=== PATIENT | female | born 1990 | race Two or more races ===

== ENCOUNTER 2024-02-16 17:52 | Emergency (ER) | payer MEDICAID, SELFPAY ==
[2024-02-16 17:53] VITALS: BMI 33.7
[2024-02-16 18:11] VITALS: BP 113/76; PULSE 86; RESP 20; TEMP 37; O2SAT 97
--- NOTE | 2024-02-16 18:46 | XR_ITS ---
Examination: PA chest single view Technique: Upright PA chest single view Exam date and time: February 16, 2024 1859 hrs. Comparison June 27, 2023 Indications: Chest pain shortness of breath beginning 4 days ago. Findings: Normal heart size Lungs are clear. The osseous structures are intact Impression: No active disease
--- NOTE | 2024-02-16 18:46 | PD.EDRME ---
Rapid Medical Screening Exam RME Arrival date/time: 02/16/24 17:52 33F with no significant PMH presents to ED with several days of CP and SOB. Patient denies URI symptoms. Chief Complaint: Flu Like Symptoms Vital signs: Vital Signs Temperature 98.6 F 02/16/24 18:11 Pulse Rate 86 02/16/24 18:11 Respiratory Rate 20 02/16/24 18:11 Blood Pressure 113/76 02/16/24 18:11 Pulse Oximetry (%) 97 02/16/24 18:11 Oxygen Delivery Method Room Air 02/16/24 18:11
[2024-02-16 19:38] LABS: Basophils # (Auto) 0.1 Thou/mm3 (0.0-0.2); Basophils % (Auto) 1 % (0-2.5); Eosinophils # (Auto) 0.3 Thou/mm3 (0.0-0.5); Eosinophils % (Auto) 4 % (0-10); Hematocrit 36.3 % (36.0-46.0); Hemoglobin 12.5 g/dL (12.0-16.0); Immature Granulocytes % (Auto) 0 % (0-0); Immature Granulocytes Auto 0.02 Thou/mm3 (0.00-0.00); Lymphocytes # (Auto) 3.2 Thou/mm3 (1.0-4.8); Lymphocytes % (Auto) 33 % (10-50); Mean Corpuscular HGB Conc 34.4 g/dl (31.0-37.0); Mean Corpuscular Hemoglobin 29.8 pg (25.0-35.0); Mean Corpuscular Volume 87 fL (80-100); Monocytes # (Auto) 0.5 Thou/mm3 (0.0-0.8); Monocytes % (Auto) 6 % (0-12); Neutrophils # (Auto) 5.4 Thou/mm3 (1.8-7.7); Neutrophils % (Auto) 57 % (37-80); Nucleated Red Blood Cell % 0 /100 WBC (0); Platelet Count 287 Thou/mm3 (140-440); Red Blood Count 4.19 Miln/mm3 (4.00-5.20); White Blood Count 9.5 Thou/mm3 (3.6-11.0)
[2024-02-16 19:57] LABS: Alanine Aminotransferase 25 U/L (10-49); Albumin, Serum 4.3 gm/dL (3.5-5.0); Albumin/Globulin Ratio 1.5 (1.2-2.2); Alkaline Phosphatase 56 U/L (46-116); Anion Gap 6 (7-16); Aspartate Amino Transferase 14 U/L (0-34); BUN/Creatinine Ratio 21 Ratio (12-20); Bilirubin,Total 0.3 mg/dL (0.3-1.2); Blood Urea Nitrogen 15 mg/dL (9-23); Calcium 9.4 mg/dL (8.3-10.6); Calcium (Corrected) 9.4 mg/dL (8.5-10.1); Carbon Dioxide 25.7 mMol/L (20.0-31.0); Chloride 108 mMol/L (98-107); Creatinine (Component) 0.7 mg/dL (0.6-1.3); Estimated Creatinine Clearance 121.4 mL/min (>60); Globulin 2.9 gm/dL (2.3-3.5); Glucose 89 mg/dL (74-106); Osmolality,Calculated 279 (275-295); Potassium 4.2 mMol/L (3.4-5.1); Sodium 140 mMol/L (136-145); Total Protein 7.2 gm/dL (5.7-8.2); Troponin I < 0.002 ng/mL (0.0-0.045); eGFR > 60 See Note
--- NOTE | 2024-02-16 22:20 | PD.EDRME ---
Rapid Medical Screening Exam RME Arrival date/time: 02/16/24 17:52 02/16/24 17:52 33F with no significant PMH presents to ED with several days of CP and SOB. Patient denies URI symptoms. Chief Complaint: Flu Like Symptoms Vital signs: Vital Signs Temperature 98.6 F 02/16/24 18:11 Pulse Rate 86 02/16/24 18:11 Respiratory Rate 20 02/16/24 18:11 Blood Pressure 113/76 02/16/24 18:11 Pulse Oximetry (%) 97 02/16/24 18:11 Oxygen Delivery Method Room Air 02/16/24 18:11 RME Narrative: 02/16/24 17:52 33F with no significant PMH presents to ED with several days of CP and SOB. Patient denies URI symptoms.
--- NOTE | 2024-02-16 23:07 | PD.EDURI ---
Upper Respiratory Inf. RME/HPI General Chief Complaint: Flu Like Symptoms Stated Complaint: CHEST PAIN , [place] AND SOB X4 DAYS Source: patient Arrival date/time: 02/16/24 17:52 Mode of arrival: ambulatory Limitations: no limitations RME / HPI RME / HPI Narrative: 02/16/24 17:52 33F with no significant PMH presents to ED with several days of CP and SOB. Patient denies URI symptoms. --- DR. THOMAS MAIN ED EVALUATION: 33-year-old female with no significant past medical history coming in with 4 -day history of cough, associated shortness of breath only with a cough. Patient has chest wall pain with coughing. Patient has been taking Tylenol x4 days without improvement. No family history of pulmonary embolism. Non-smoker and no recent travel. No swelling of lower extremities. Related Data Previous Rx's ?Medication ?Instructions ?Recorded ibuprofen 600 mg tablet 600 mg PO Q6H PRN pain #20 tabs 01/28/21 Allergies Allergy/AdvReac Type Severity Reaction Status Date / Time ceftriaxone Allergy Severe Hives Verified 02/16/24 17:55 Review of Systems Review of Systems Systems Reviewed: All systems reviewed, normal except as documented Narrative Review of Systems: GEN: No fever, no chills, no weight loss EYES: No discharge, no visual changes, no pain HEENT: No ear pain, no congestion, no sore throat PULM: No shortness of breath, +cough, no congestion CV: +chest pain, no dyspnea on exertion, no palpitations GI: No nausea, no vomiting, no diarrhea, no pain, no constipation : No frequency, no urgency and no dysuria MUSC/SKEL No joint pain, no back pain SKIN: No rash PSYCH: No hallucinations, no depression HEME/LYMPH: No easy bleeding or bruising tendencies NEURO: No weakness, neck spasm mild headache Past Medical History Past Medical History NEUROLOGIC: Negative Neurological Disorders CARDIAC: Negative Cardiac Disorders or Congestive Heart Failure RESPIRATORY: Positive Asthma; Negative Chronic Obstructive Pulmonary Disease (COPD) or Pneumonia GASTROINTESTINAL: Positive Gastrointestinal Disorders and Gall Bladder Disease; Negative Hepatitis GENITOURINARY: Negative Genitourinary Disorders or Renal Disease REPRODUCTIVE: Positive Previous Pregnancies; Negative Endometriosis, Genital Herpes, Gonorrhea, Pelvic Inflammatory Disease, Syphilis or Uterine Prolapse MUSCULOSKELETAL: Negative Musculoskeletal Disorders ENDOCRINE: Negative Endocrine Disorders, Diabetes Mellitus Type 1 or Diabetes Mellitus Type 2 HEMATOLOGIC: Negative Blood Disorders, Anemia, Leukemia, Hemophilia, Thalassemia, Sickle Cell Disease or Clotting Problems OTHER HISTORY: Positive Hospitalization and Chicken Pox; Negative Autoimmune Disease, Down Syndrome, Developmental Delay, Shingles, Falls, Blood Transfusions, Blood Transfusion Reaction, Anesthesia Reactions, Organ Transplant, Chemotherapy, Radiation Therapy, Hyperbaric Therapy, MRSA, VRSA, Vancomycin-Resistant Enterococci, Human Immunodeficiency Virus (HIV), Measles, Mumps, Rubella ([place] Measles), Pertussis, Clostridium Difficile or Cancer Family History FAMILY HISTORY: Positive Family Psychiatric Problems (MOTHER- DEPRESSION) and Family Cardiac Disorders (MOTHER- CHOLESTEROL/HTN.); Negative Family Respiratory Disorders, Family Gastrointestinal Problems, Family Cancer, Family Surgery or Family Anesthesia Reaction Surgical History SURGICAL: Positive Abdominal Surgery; Negative Section or Organ Transplant Social History SMOKING STATUS: Never smoker SECOND HAND EXPOSURE: No ED Exam Narrative Physical exam: GENERAL: In general the patient is awake, interactive, in an emergency department gurney. Diaphoretic. HEAD/EYES/EARS/NOSE/THROAT: normo-cephalic, atraumatic, mucus membranes are moist. No cervical tenderness palpation midline. Supple neck. CARDIOVASCULAR: regular rate and regular rhythm, no murmurs, heart sounds are not distant, strong pulses in all four extremities that are equal and symmetric bilateral upper and lower extremities, normal capillary refill. CHEST/PULMONARY: normal chest rise and fall, good air movement, clear to auscultation bilaterally, normal inspiratory to expiratory ratios without evidence of respiratory distress. ABDOMEN: soft, not tender, no masses appreciated BACK: normal range of motion without pain. NEUROLOGICAL: cranio-facial features are symmetric, moves all four extremities equally without obvious limitations or weakness. EXTREMITY: no tenderness to palpation over the long bones or large joints of the bilateral upper and lower extremities, no joint swelling, no joint erythema, no signs of trauma, no unilateral leg swelling and no peripheral edema. SKIN: warm, dry, well-perfused, no jaundice, no rash, no telangiectasias or petechia. PSYCH: calm, cooperative, no evidence of psychosis or agitation General Limitations: Present no limitations Course Course Course Narrative: CXR is ordered for determining etiology of shortness of breath. Quality Measures none Orders Category Date Time Status Bedside Influenza A&B Antigen Test NOW Care 02/16/24 18:21 Completed EKG (ED ONLY) *Do not use* NOW Care 02/16/24 17:56 Completed EKG (ED Only) Stat Exams 02/16/24 17:56 Ordered XR chest 1V portable Stat Exams 02/16/24 18:46 Completed CBC Stat Lab 02/16/24 19:23 Completed Comprehensive Metabolic Panel Stat Lab 02/16/24 19:23 Completed Troponin I Stat Lab 02/16/24 19:23 Completed Diazepam [Valium] Med 02/16/24 23:14 Discontinued 5 mg PO X1 ONE Ketorolac Inj [Toradol Inj] Med 02/16/24 23:12 Discontinued 30 mg IM X1 ONE Vital Signs Vital signs: Vital Signs Temperature 98.6 F 02/16/24 18:11 Pulse Rate 86 02/16/24 18:11 Respiratory Rate 20 02/16/24 18:11 Blood Pressure 113/76 02/16/24 18:11 Pulse Oximetry (%) 97 02/16/24 18:11 Oxygen Delivery Method Room Air 02/16/24 18:11 Procedures -ED EKG Interpretation #1: Date of EK02/16/24 Time of EK:08 Rate: 73 Interpretation: Interpreted by me EKG Impression: Normal sinus rhythm and No acute ST-T changes Additional EKG comment: Impression: No STEMI Upper Respiratory Infection MDM Narrative MDM Narrative:: Differential diagnoses include: Likely viral upper respiratory tract infection. No evidence of life threatening pathology and doubt pneumonia, myocardial infarction, pneumothorax, meningitis, PE. Patient tolerating oral fluids and solids without difficulty. Will treat symptomatically and arrange follow up with primary care practitioner. The patient was given strict return precautions and was comfortable with the plan. ? Scribe Attestation: IEdd am scribing for and in the presence of Dr. Ramirez. Provider Notation: Although this document has been carefully reviewed, there may still be some phonetic and other typographical errors. These errors are purely grammatical due to imperfections in the software program and should not be construed in any way to compromise the substance of the patient's medical care during this visit. Patient data External records reviewed:: [facility] previous records Clinical information provided by:: patient Social determinants that could affect healthcare access:: none Patient has the following chronic illnesses:: Asthma How is presenting disease/condition affected by chronic disease/condition?: uneffected by Evaluation data The following diagnostics were reviewed and interpreted by me:: lab results and radiology exam(s) Lab and/or radiology exams considered but not ordered:: None Interpretation Summary: I personally reviewed the radiology data and agree with the radiologist's interpretation. Examination: PA chest single view Technique: Upright PA chest single view Exam date and time: February 16, 2024 1859 hrs. Comparison June 27, 2023 Indications: Chest pain shortness of breath beginning 4 days ago. Findings: Normal heart size Lungs are clear. The osseous structures are intact Impression: No active disease Dictated By: Marco A Gómez MD Medications / Prescriptions Medications or Prescriptions considered but not ordered:: None Medication administrations:: Medication Administration History Discontinued Medications Diazepam (Diazepam 5 Mg Tablet) 5 mg PO X1 ONE Stop: 02/16/24 23:15 Ketorolac Tromethamine (Ketorolac Inj 60 Mg/2 Ml Vial) 30 mg IM X1 ONE Stop: 02/16/24 23:13 As above, if any Consultations Consultation(s) initiated? (list below): No Consultation #1 (Physician, Specialty, Details): NA Diagnosis Upper Respiratory Differential Diagnosis: upper respiratory infection, otitis media, viral infection, bronchitis, influenza, pharyngitis and other (pna) Most likely diagnosis given after review of the tests above:: Body aches Admission Indicated Admission indicated?: not indicated Admission Request Was there a request for admission?: No Disposition Plan Disposition Plan: Discharge Discharge Attestation Discharge Attestation: The patient and all family members were given an opportunity to ask questions and understood the discharge instructions. Discharge instructions specifically effects, indications for sooner follow up or return to the emergency department, and the expected course of current diagnosis. Patient condition: Stable Discharge Plan Plan Patient Disposition: HOME (Self Care) Patient condition on transfer: Stable Prescriptions/Referrals Prescriptions/Med Rec: No Action ibuprofen 600 mg tablet 600 mg PO Q6H PRN (Reason: pain) Qty: 20 0RF Referrals: Grant Garcia MD [Primary Care Provider] - In 1 week Problem List Clinical Impression: Body aches Patient/Caregiver Discharge Instructions Diet Instructions: Stay hydrated Pedialyte and/or Gatorade. Education Materials: ED Muscle Spasm Additional Instructions: Continue [id number] Motrin and/or Tylenol as needed for the next 2 to 4 days 3-4 times a day with food. Return to emergency department if worsening symptoms, or any other concerns. Print Language: Danish Stand Alone Forms: Mara Award Info., Patient Portal Info Letter
[2024-02-16] MEDS: KETOROLAC INJ 60 MG/2 ML VIAL 30 MG IM (23:31)
[2024-02-16] MEDS: DIAZEPAM 5 MG TABLET PO (23:32)
== END 2024-02-16 23:39 | disposition home or self-care (01) ==
PROVIDERS: Physician Assistant; Emergency Provider Emergency Medicine; PCP Family Medicine
DX: R07.89 Other chest pain (principal); R06.02 Shortness of breath
CPT/HCPCS: 36415; 71045; 80053; 84484; 85025; 87400; 93005; 96372; 99283; J1885; A9270

== ENCOUNTER 2024-06-08 15:21 | Emergency (ER) | payer MEDICAID, SELFPAY ==
[2024-06-08 15:21] VITALS: BMI 35.5
[2024-06-08 15:41] VITALS: BP 127/84; PULSE 67; RESP 18; TEMP 36.8; O2SAT 99
--- NOTE | 2024-06-08 15:52 | PD.EDRME ---
Rapid Medical Screening Exam RME Arrival date/time: 06/08/24 15:21 33-year-old female presents emergency department for complaints of generalized body aches and cramping Chief Complaint: General Adult/Misc Complain Time Seen by Provider: 06/08/24 15:29 Vital signs: Vital Signs Temperature 98.2 F 06/08/24 15:41 Pulse Rate 67 06/08/24 15:41 Respiratory Rate 18 06/08/24 15:41 Blood Pressure 127/84 06/08/24 15:41 Pulse Oximetry (%) 99 06/08/24 15:41 Oxygen Delivery Method Room Air 06/08/24 15:41
[2024-06-08 16:12] LABS: Basophils # (Auto) 0.1 Thou/mm3 (0.0-0.2); Basophils % (Auto) 1 % (0-2.5); Eosinophils # (Auto) 0.3 Thou/mm3 (0.0-0.5); Eosinophils % (Auto) 4 % (0-10); Hematocrit 35.6 % (36.0-46.0); Hemoglobin 12.1 g/dL (12.0-16.0); Immature Granulocytes % (Auto) 0 % (0-0); Immature Granulocytes Auto 0.02 Thou/mm3 (0.00-0.00); Lymphocytes # (Auto) 2.8 Thou/mm3 (1.0-4.8); Lymphocytes % (Auto) 31 % (10-50); Mean Corpuscular Hemoglobin 29.8 pg (25.0-35.0); Mean Corpuscular Volume 88 fL (80-100); Monocytes # (Auto) 0.5 Thou/mm3 (0.0-0.8); Monocytes % (Auto) 5 % (0-12); Neutrophils # (Auto) 5.4 Thou/mm3 (1.8-7.7); Neutrophils % (Auto) 60 % (37-80); Nucleated Red Blood Cell % 0 /100 WBC (0); Platelet Count 289 Thou/mm3 (140-440); RDW Standard Deviation 41.1 fL (36.4-46.3); Red Blood Count 4.06 Miln/mm3 (4.00-5.20); White Blood Count 9.1 Thou/mm3 (3.6-11.0)
[2024-06-08 16:29] LABS: Alanine Aminotransferase 15 U/L (10-49); Albumin, Serum 4.2 gm/dL (3.5-5.0); Albumin/Globulin Ratio 1.4 (1.2-2.2); Alkaline Phosphatase 49 U/L (46-116); Anion Gap 7 (7-16); Aspartate Amino Transferase 15 U/L (0-34); BUN/Creatinine Ratio 17 Ratio (12-20); Bilirubin,Total 0.4 mg/dL (0.3-1.2); Blood Urea Nitrogen 10 mg/dL (9-23); Carbon Dioxide 26.3 mMol/L (20.0-31.0); Chloride 107 mMol/L (98-107); Creatine Kinase 114 U/L (34-171); Creatinine (Component) 0.6 mg/dL (0.6-1.3); Estimated Creatinine Clearance 145.4 mL/min (>60); Glucose 93 mg/dL (74-106); Magnesium 1.9 mg/dL (1.6-2.6); Osmolality,Calculated 278 (275-295); Potassium 4.2 mMol/L (3.4-5.1); Sodium 140 mMol/L (136-145); Total Protein 7.2 gm/dL (5.7-8.2); eGFR > 60 See Note
[2024-06-08 16:38] LABS: Collection Type, Urine Clean Catch
[2024-06-08 16:43] LABS: Bilirubin,Urine Negative (Negative); Blood,Urine Negative (Negative); Clarity,Urine Clear (Clear/Hazy); Color,Urine Colorless (Lt Yel-Yel); Culture Indicated,Urine Not Indicated; Glucose, Urine Negative (Negative); Ketones,Urine Negative (Negative); Leukocyte Esterase,Urine Negative (Negative); Nitrite,Urine Negative (Negative); Protein,Urine Negative (Neg - Trace); RBC,Urine < 1 /hpf (0-3); Specific Gravity,Urine 1.008 (1.001-1.035); Squamous Epithelial Cell,Urine < 1 /hpf (0-5); Urobilinogen,Urine Negative mg/dL (0.0-1.0); WBC,Urine < 1 /hpf (0-5)
[2024-06-08 16:46] LABS: HCG Qualitative,Urine Negative
--- NOTE | 2024-06-08 17:48 | EDNOTE_ITS ---
<Statement entered by Jannet Lopez MD - 06/09/24 08:13> As co-signing physician, I was present and available for consult prn. I concur with the plan and care as documented by the midlevel provider. ED General RME/HPI General Chief complaint: General Adult/Misc Complain Stated complaint: BODYACHE X4DAY Time Seen by Provider: 06/08/24 15:29 Arrival date/time: 06/08/24 15:21 33-year-old female presents emergency department for complaints of generalized body aches and cramping patient reports history of fibromyalgia as well as gastric sleeve Limitations: no limitations RME / HPI RME / HPI narrative: 06/08/24 15:21 33-year-old female presents emergency department for complaints of generalized body aches and cramping Related Data Previous Rx's ?Medication ?Instructions ?Recorded ibuprofen 600 mg tablet 600 mg PO Q6H PRN pain #20 t abs 01/28/21 acetaminophen 500 mg capsule 1,000 mg (2 x 500 mg) PO Q8HR PRN 06/08/24 pain #30 caps cyclobenzaprine 10 mg tablet 10 mg PO TID PRN muscle s pasm 10 06/08/24 days #30 tab-caps Allergies Allergy/AdvReac Type Severity Reaction Status Date / Time ceftriaxone Allergy Severe Hives Verified 06/08/24 15:23 Review of Systems Review of Systems Systems Reviewed: All systems reviewed, normal except as documented Constitutional Constitutional: Reports system reviewed and no additional complaints, except as documented, Reports body ache(s), Reports fatigue, Denies fever(s) and Denies headache(s) Eyes Eyes: Reports system reviewed and no additional complaints, except as documented and Denies blurry vision ENT Ears, Nose, Mouth, and Throat: Reports system reviewed and no additional complaints, except as documented, Denies headache(s), Denies nasal congestion and Denies nasal discharge Cardiovascular Cardiovascular: Reports system reviewed and no additional complaints, except as documented, Denies chest pain and Denies dyspnea Respiratory Respiratory: Reports system reviewed and no additional complaints, except as documented, Denies chest congestion, Denies cough and Denies dyspnea Gastrointestinal Gastrointestinal: Reports system reviewed and no additional complaints, except as documented and Denies abdominal pain Integumentary/Breasts Skin/Breast: Reports system reviewed and no additional complaints, except as documented and Denies rash Neurologic Neurologic: Reports system reviewed and no additional complaints, except as documented, Reports as per HPI and Denies headache(s) Endocrine Endocrine: Reports fatigue Past Medical History Past Medical History NEUROLOGIC: Negative Neurological Disorders CARDIAC: Negative Cardiac Disorders or Congestive Heart Failure RESPIRATORY: Positive Asthma; Negative Chronic Obstructive Pulmonary Disease (COPD) or Pneumonia GASTROINTESTINAL: Positive Gastrointestinal Disorders and Gall Bladder Disease; Negative Hepatitis GENITOURINARY: Negative Genitourinary Disorders or Renal Disease REPRODUCTIVE: Positive Previous Pregnancies; Negative Endometriosis, Genital Herpes, Gonorrhea, Pelvic Inflammatory Disease, Syphilis or Uterine Prolapse MUSCULOSKELETAL: Negative Musculoskeletal Disorders ENDOCRINE: Negative Endocrine Disorders, Diabetes Mellitus Type 1 or Diabetes Mellitus Type 2 HEMATOLOGIC: Negative Blood Disorders, Anemia, Leukemia, Hemophilia, Thalassemia, Sickle Cell Disease or Clotting Problems OTHER HISTORY: Positive Hospitalization and Chicken Pox; Negative Autoimmune Disease, Down Syndrome, Developmental Delay, Shingles, Falls, Blood Transfusions, Blood Transfusion Reaction, Anesthesia Reactions, Organ Transplant, Chemotherapy, Radiation Therapy, Hyperbaric Therapy, MRSA, VRSA, Vancomycin-Resistant Enterococci, Human Immunodeficiency Virus (HIV), Measles, Mumps, Rubella ([place] Measles), Pertussis, Clostridium Difficile or Cancer Family History FAMILY HISTORY: Positive Family Psychiatric Problems (MOTHER- DEPRESSION) and Family Cardiac Disorders (MOTHER- CHOLESTEROL/HTN.); Negative Family Respiratory Disorders, Family Gastrointestinal Problems, Family Cancer, Family Surgery or Family Anesthesia Reaction Surgical History SURGICAL: Positive Abdominal Surgery; Negative Section or Organ Transplant Social History SMOKING STATUS: Never smoker SECOND HAND EXPOSURE: No ED Exam General Limitations: Present no limitations General appearance: Present alert and in no apparent distress Head Head exam: Present atraumatic, normocephalic and normal inspection Eye Eye exam: Present normal appearance, PERRL and EOMI; Absent conjunctival injection ENT ENT exam: Present normal exam, normal oropharynx and mucous membranes moist Neck Neck exam: Present normal inspection, full ROM and trachea midline Chest Chest inspection: Present normal inspection and symmetric chest wall rise Respiratory Respiratory exam: Present normal lung sounds bilaterally Cardiovascular Cardiovascular exam: Present regular rate, normal rhythm and normal heart sounds Abdominal Exam Abdominal exam: Present soft and normal bowel sounds; Absent distention, tenderness, guarding, rebound or rigidity Extremities Exam Extremities exam: Present normal inspection and full ROM Back Exam Back exam: Present normal inspection and full ROM Neurological Exam Neurological exam: Present alert, oriented X3, CN II-XII intact, normal gait and reflexes normal; Absent motor sensory deficit Psychiatric Psychiatric exam: Present normal affect and normal mood Skin Skin exam: Present warm, dry, intact and normal color; Absent rash Course Quality Measures none Orders Category Date Time Status Bedside Influenza A&B Antigen Test NOW Care 06/08/24 15:52 Completed CBC Stat Lab 06/08/24 16:02 Completed Comprehensive Metabolic Panel Stat Lab 06/08/24 16:02 Completed Creatine Kinase Stat Lab 06/08/24 16:02 Completed HCG Qualitative,Urine Stat Lab 06/08/24 16:32 Completed Mag [Magnesium] Stat Lab 06/08/24 16:02 Completed UA, C/S IF [Urinalysis, C/S if Indicated] Stat Lab 06/08/24 16:32 Completed Vital Signs Vital signs: Vital Signs Temperature 98.2 F 06/08/24 15:41 Pulse Rate 67 06/08/24 15:41 Respiratory Rate 18 06/08/24 15:41 Blood Pressure 127/84 06/08/24 15:41 Pulse Oximetry (%) 99 06/08/24 15:41 Oxygen Delivery Method Room Air 06/08/24 15:41 O2 saturation 99% room air within normal limits MDM Patient data External records reviewed:: [facility] previous records Clinical information provided by:: patient Social determinants that could affect healthcare access:: none Patient has the following chronic illnesses:: See history How is presenting disease/condition affected by chronic disease/condition?: e xacerbated by Evaluation data The following diagnostics were reviewed and interpreted by me:: lab results Lab and/or radiology exams considered but not ordered:: Labs obtained Interpretation Summary: Reviewed by me Medications Medications considered but not ordered:: Given Medication administrations:: Given Consultations Consultation(s) initiated? (list below): No Diagnosis Differential Diagnosis ED Complaint MDM: Electrolyte imbalance, fibromyalgia, body aches, fatigue Most likely diagnosis given after review of the tests above:: Stress reaction, fatigue Admission Indicated Admission indicated?: not indicated Explain why admission is indicated or not indicated:: No criteria Admission Request Was there a request for admission?: No Disposition Plan Disposition Plan: Discharge Discharge Attestation Discharge Attestation: The patient and all family members were given an opportunity to ask questions and understood the discharge instructions. Discharge instructions specifically effects, indications for sooner follow up or return to the emergency department, and the expected course of current diagnosis. Patient condition: Stable Medical Decision Making MDM Narrative MDM Narrative: 33-year-old female presents emergency department for complaints of generalized body aches and cramping patient reports history of fibromyalgia as well as gastric sleeve Lab work obtained no acute emergent findings noted Patient has no abnormal neurological findings patient is hemodynamically stable patient no distress Lab work is unremarkable Patient discharged home in no distress to follow-up with primary care doctor in the next 24 to 48 hours and for any worsening symptoms to return to the ER immediately Differential Diagnosis Differential Diagnosis: Electrolyte imbalance, fibromyalgia, body aches, fatigue Medical Records Medical records reviewed: Yes I reviewed the patient's medical records. Lab Data Lab results reviewed: Yes I reviewed the patient's lab results. 06/08/24 16:02 06/08/24 16:02 Labs: Lab Results 06/08/24 06/08/24 Range/Units 16:02 16:32 WBC 9.1 (3.6-11.0) Thou/mm3 RBC 4.06 (4.00-5.20) Miln/mm3 Hgb 12.1 (12.0-16.0) g/dL Hct 35.6 L (36.0-46.0) % MCV 88 (80-100) fL MCH 29.8 (25.0-35.0) pg MCHC 34.0 (31.0-37.0) g/dl RDW Std Deviation 41.1 (36.4-46.3) fL Plt Count 289 (140-440) Thou/mm3 Neut % (Auto) 60 (37-80) % Lymph % (Auto) 31 (10-50) % [place] % (Auto) 5 (0-12) % Eos % (Auto) 4 (0-10) % Baso % (Auto) 1 (0-2.5) % Neut # (Auto) 5.4 (1.8-7.7) Thou/mm3 Lymph # (Auto) 2.8 (1.0-4.8) Thou/mm3 [place] # (Auto) 0.5 (0.0-0.8) Thou/mm3 Eos # (Auto) 0.3 (0.0-0.5) Thou/mm3 Baso # (Auto) 0.1 (0.0-0.2) Thou/mm3 Immature Gran # (Auto) 0.02 H (0.00-0.00) Thou/mm3 Absolute Nucleated RBC 0.00 (0.00-0.00) Thou/mm3 Immature Gran % 0 (0-0) % Nucleated RBC % 0 (0) /100 WBC Sodium 140 (136-145) mMol/L Potassium 4.2 (3.4-5.1) mMol/L Chloride 107 (98-107) mMol/L Carbon Dioxide 26.3 (20.0-31.0) mMol/L Anion Gap 7 (7-16) BUN 10 (9-23) mg/dL Creatinine 0.6 (0.6-1.3) mg/dL Estim Creat Clear Calc 145.4 (>60) mL/min eGFR > 60 (60 - ) See Note BUN/Creatinine Ratio 17 (12-20) Ratio Glucose 93 (74-106) mg/dL Calculated Osmolality 278 (275-295) Calcium 9.0 (8.3-10.6) mg/dL Corrected Calcium 9.0 (8.5-10.1) mg/dL Magnesium 1.9 (1.6-2.6) mg/dL Total Bilirubin 0.4 (0.3-1.2) mg/dL AST 15 (0-34) U/L ALT 15 (10-49) U/L Alkaline Phosphatase 49 (46-116) U/L Total Creatine Kinase 114 (34-171) U/L Total Protein 7.2 (5.7-8.2) gm/dL Albumin 4.2 (3.5-5.0) gm/dL Globulin 3.0 (2.3-3.5) gm/dL Albumin/Globulin Ratio 1.4 (1.2-2.2) Ur Collection Type Clean Catch Urine Color Colorless A (Lt Yel-Yel) Urine Clarity Clear (Clear/Hazy) Urine pH 7.0 (5.0-7.0) Ur Specific Reading 1.008 (1.001-1.035) Urine Protein Negative (Neg - Trace) Urine Glucose (UA) Negative (Negative) Urine Ketones Negative (Negative) Urine Blood Negative (Negative) Urine Nitrite Negative (Negative) Urine Bilirubin Negative (Negative) Urine Urobilinogen (Auto) Negative (0.0-1.0) mg/dL Ur Leukocyte Esterase Negative (Negative) Urine RBC < 1 (0-3) /hpf Urine WBC < 1 (0-5) /hpf Ur Squamous Epith Cells < 1 (0-5) /hpf Urine Bacteria None (None) Ur Culture Indicated? Not Indicated Urine HCG, Qual Negative Discharge Plan Plan Patient Disposition: HOME (Self Care) Disposition Comment: stable Prescriptions/Referrals Prescriptions/Med Rec: New cyclobenzaprine 10 mg tablet 10 mg PO TID PRN (Reason: muscle spasm) 10 Days Qty: 30 0RF acetaminophen 500 mg capsule 1,000 mg PO Q8HR PRN (Reason: pain) Qty: 30 0RF No Action ibuprofen 600 mg tablet 600 mg PO Q6H PRN (Reason: pain) Qty: 20 0RF Referrals: No Primary/Family,Physician [Primary Care Provider] - 06/09/24 Problem List Clinical Impression: Body aches, Fatigue Patient/Caregiver Discharge Instructions Education Materials: Medicine for Pain Additional Instructions: Please follow up with your primary care doctor in the next 24-48hrs for any worsening symptoms return here immediately Print Language: German Stand Alone Forms: Mara Award Info., Work/School Release, Patient Portal Info Letter PA/IMAGING MANAGER Supervising Physician PA/IMAGING MANAGER Supervising Physician: Dr. lopez
== END 2024-06-08 18:04 | disposition home or self-care (01) ==
PROVIDERS: Nurse Practitioner Primary Care; Emergency Provider Emergency Medicine
DX: R52 Pain, unspecified (principal); R53.83 Other fatigue; M79.7 Fibromyalgia; Z98.84 Bariatric surgery status
CPT/HCPCS: 36415; 80053; 81001; 81025; 82550; 83735; 85025; 87400; 99283

== ENCOUNTER 2024-07-24 20:25 | Emergency (ER) | payer MEDICAID, SELFPAY ==
[2024-07-24 20:25] VITALS: BMI 36.0
[2024-07-24 20:46] VITALS: BP 108/75; PULSE 67; RESP 20; TEMP 37.1; O2SAT 97
--- NOTE | 2024-07-24 21:10 | XR_ITS ---
1 Limited movement with a examination: PA lateral chest 2 views TECHNIQUE: Upright PA lateral chest 2 views Date and time: July 04, 2024 at 2142 hours INDICATIONS: Coughing for 10 days. FINDINGS: Normal heart size. Lungs are clear. Osseous structures are intact. IMPRESSION: No active disease
--- NOTE | 2024-07-24 21:10 | EDNOTE_ITS ---
Upper Respiratory Inf. RME/HPI General Chief Complaint: Flu Like Symptoms Stated Complaint: COLD SYMPTOMS, COUGH Time Seen by Provider: 07/24/24 20:35 Arrival date/time: 07/24/24 20:25 Limitations: no limitations RME / HPI RME / HPI Narrative: 33-year-old female presents with a 10-day history of cough, shortness of breath, runny nose, nasal congestion, sore throat, sinus pressure and drainage. She denies fever or chills, nausea or vomiting. No others are ill at home with similar symptoms. Related Data Previous Rx's ?Medication ?Instructions ?Recorded ibuprofen 600 mg tablet 600 mg PO Q6H PRN pain #20 t abs 01/28/21 acetaminophen 500 mg capsule 1,000 mg (2 x 500 mg) PO Q8HR PRN 06/08/24 pain #30 caps albuterol sulfate 90 mcg/actuation 2 inh inhalation Q4 H PRN shortness 07/24/24 aerosol inhaler of breath or wheezing #8.5 g jennifer amoxicillin 875 mg-potassium 1 tab PO BID Sinusitis #2 0 tabs 07/24/24 clavulanate 125 mg tablet cetirizine 10 mg tablet (Zyrtec) 10 mg PO QDAY #30 tab s 07/24/24 fluticasone propionate 50 2 spray intranasal QDAY #16 grams 07/24/24 mcg/actuation nasal spray,suspension (Flonase Allergy Relief) Allergies Allergy/AdvReac Type Severity Reaction Status Date / Time ceftriaxone Allergy Severe Hives Verified 06/08/24 15:23 Review of Systems Review of Systems Systems Reviewed: All systems reviewed, normal except as documented Past Medical History Past Medical History NEUROLOGIC: Negative Neurological Disorders CARDIAC: Negative Cardiac Disorders or Congestive Heart Failure RESPIRATORY: Positive Asthma; Negative Chronic Obstructive Pulmonary Disease (COPD) or Pneumonia GASTROINTESTINAL: Positive Gastrointestinal Disorders and Gall Bladder Disease; Negative Hepatitis GENITOURINARY: Negative Genitourinary Disorders or Renal Disease REPRODUCTIVE: Positive Previous Pregnancies; Negative Endometriosis, Genital Herpes, Gonorrhea, Pelvic Inflammatory Disease, Syphilis or Uterine Prolapse MUSCULOSKELETAL: Negative Musculoskeletal Disorders ENDOCRINE: Negative Endocrine Disorders, Diabetes Mellitus Type 1 or Diabetes Mellitus Type 2 HEMATOLOGIC: Negative Blood Disorders, Anemia, Leukemia, Hemophilia, Thalassemia, Sickle Cell Disease or Clotting Problems OTHER HISTORY: Positive Hospitalization and Chicken Pox; Negative Autoimmune Disease, Down Syndrome, Developmental Delay, Shingles, Falls, Blood Transfusions, Blood Transfusion Reaction, Anesthesia Reactions, Organ Transplant, Chemotherapy, Radiation Therapy, Hyperbaric Therapy, MRSA, VRSA, Vancomycin-Resistant Enterococci, Human Immunodeficiency Virus (HIV), Measles, Mumps, Rubella (Czech Measles), Pertussis, Clostridium Difficile or Cancer Family History FAMILY HISTORY: Positive Family Psychiatric Problems (MOTHER- DEPRESSION) and Family Cardiac Disorders (MOTHER- CHOLESTEROL/HTN.); Negative Family Respiratory Disorders, Family Gastrointestinal Problems, Family Cancer, Family Surgery or Family Anesthesia Reaction Surgical History SURGICAL: Positive Abdominal Surgery; Negative Section or Organ Transplant Social History SMOKING STATUS: Never smoker SECOND HAND EXPOSURE: No ED Exam Narrative Physical exam: Edwina 33-year-old female, no acute distress. TMs are without erythema, nares are with erythema and edema bilaterally. Positive frontal and maxillary sinus tenderness. Pharynx without erythema or exudate. Neck is supple no adenopathy. Cardiovascular regular rate and rhythm without murmurs. Lungs reveal mild end expiratory wheezes. Abdomen is soft and nontender, no rebound or guarding. Moves all extremities well. General Limitations: Present no limitations General appearance: Present alert and in no apparent distress Course Course Course Narrative: 33-year-old female presents with a 10-day history of cough, shortness of breath, runny nose, nasal congestion, sore throat, sinus pressure and drainage. She denies fever or chills, nausea or vomiting. No others are ill at home with similar symptoms. Edwina 33-year-old female, no acute distress. TMs are without erythema, nares are with erythema and edema bilaterally. Positive frontal and maxillary sinus tenderness. Pharynx without erythema or exudate. Neck is supple no adenopathy. Cardiovascular regular rate and rhythm without murmurs. Lungs reveal mild end expiratory wheezes. Abdomen is soft and nontender, no rebound or guarding. Moves all extremities well. Influenza A/B-. COVID swab negative. Strep screen is negative. XR Chest: FINDINGS: Normal heart size. Lungs are clear. Osseous structures are intact. IMPRESSION: No active disease Patient was given Decadron 10 mg p.o. as well as a DuoNeb treatment. Quality Measures none Orders Category Date Time Status Bedside COVID-19 Antigen Test NOW Care 07/24/24 21:10 Active Bedside Influenza A&B Antigen Test NOW Care 07/24/24 21:10 Completed XR chest 2V Stat Exams 07/24/24 21:10 Completed Strep A Rapid Stat Lab 07/24/24 21:30 Completed Albuterol/Ipratr Rt Salome [Duoneb Rt Salome] Med 07/24/24 21:10 Discontinued 3 ml INH X1 ONE Dexamethasone Inj [Decadron Inj] Med 07/24/24 21:10 Discontinued 10 mg PO X1 ONE Vital Signs Vital signs: Vital Signs Temperature 98.8 F 07/24/24 20:46 Pulse Rate 67 07/24/24 20:46 Respiratory Rate 20 07/24/24 20:46 Blood Pressure 108/75 07/24/24 20:46 Pulse Oximetry (%) 97 07/24/24 20:46 Oxygen Delivery Method Room Air 07/24/24 20:46 Upper Respiratory Infection MDM Narrative MDM Narrative:: 33-year-old female presents with a 10-day history of cough, shortness of breath, runny nose, nasal congestion, sore throat, sinus pressure and drainage. She denies fever or chills, nausea or vomiting. No others are ill at home with similar symptoms. Pleasant 33-year-old female, no acute distress. TMs are without erythema, nares are with erythema and edema bilaterally. Positive frontal and maxillary sinus tenderness. Pharynx without erythema or exudate. Neck is supple no adenopathy. Cardiovascular regular rate and rhythm without murmurs. Lungs reveal mild end expiratory wheezes. Abdomen is soft and nontender, no rebound or guarding. Mo ves all extremities well. Influenza A/B-. COVID swab negative. Strep screen is negative. XR Chest: FINDINGS: Normal heart size. Lungs are clear. Osseous structures are intact. IMPRESSION: No active disease Patient was given Decadron 10 mg p.o. as well as a DuoNeb treatment. Patient data External records reviewed:: None Clinical information provided by:: patient Social determinants that could affect healthcare access:: none Patient has the following chronic illnesses:: N/A How is presenting disease/condition affected by chronic disease/condition?: no chronic disease Evaluation data The following diagnostics were reviewed and interpreted by me:: lab results and radiology exam(s) Lab and/or radiology exams considered but not ordered:: N/A Interpretation Summary: Influenza A/B-. COVID swab negative. Strep screen is negative. XR Chest: FINDINGS: Normal heart size. Lungs are clear. Osseous structures are intact. IMPRESSION: No active disease Medications / Prescriptions Medications or Prescriptions considered but not ordered:: N/A Medication administrations:: Medication Administration History Discontinued Medications Albuterol/Ipratropium (Albuterol/Ipratropium (Duoneb) Rt Salome 3 Ml Nebu) 3 ml INH X1 ONE Stop: 07/24/24 21:11 Last Admin: 07/24/24 21:44 Dose: 3 ml Documented By: KO Dexamethasone Sodium Phosphate (Dexamethasone Sod Phos Inj 10 Mg/Ml Vial) 10 mg PO X1 ONE Stop: 07/24/24 21:11 Last Admin: 07/24/24 21:45 Dose: 10 mg Documented By: MEDINA Gomez, dexamethasone 10 mg p.o. Consultations Consultation(s) initiated? (list below): No Diagnosis Upper Respiratory Differential Diagnosis: upper respiratory infection, sinusitis, viral infection, bronchitis and influenza Most likely diagnosis given after review of the tests above:: Sinusitis, bronchitis Admission Indicated Admission indicated?: not indicated Admission Request Was there a request for admission?: No Disposition Plan Disposition Plan: Discharge Discharge Attestation Discharge Attestation: The patient and all family members were given an opportunity to ask questions and understood the discharge instructions. Discharge instructions specifically effects, indications for sooner follow up or return to the emergency department, and the expected course of current diagnosis. Patient condition: Stable Discharge Plan Plan Patient Disposition: HOME (Self Care) Discharge Disposition comment: Stable and improved Prescriptions/Referrals Prescriptions/Med Rec: New amoxicillin-pot clavulanate 875-125 mg tablet 1 tab PO BID Qty: 20 0RF fluticasone propionate [Flonase Allergy Relief] 50 mcg/actuation spray,suspension 2 spray intranasal QDAY Qty: 16 0RF Rx Instructions: administer into each nostril cetirizine [Zyrtec] 10 mg tablet 10 mg PO QDAY Qty: 30 0RF albuterol sulfate 90 mcg/actuation HFA aerosol inhaler 2 inh inhalation Q4H PRN (Reason: shortness of breath or wheezing) Qty: 8.5 0RF No Action ibuprofen 600 mg tablet 600 mg PO Q6H PRN (Reason: pain) Qty: 20 0RF acetaminophen 500 mg capsule 1,000 mg PO Q8HR PRN (Reason: pain) Qty: 30 0RF Referrals: Grant Garcia MD [Primary Care Provider] - In 1 week Problem List Clinical Impression: Sinusitis, Bronchitis Patient/Caregiver Discharge Instructions Education Materials: ED Bronchitis with Wheezing (Adult), ED Sinusitis (Antibiotic Treatment) Additional Instructions: Take the antibiotics as prescribed and complete the course even though you may b e feeling better. Follow-up with your primary care physician in 24 to 48 hours. Return to the ED for any new or worsening symptoms. Print Language: Singaporean Stand Alone Forms: Mara Award Info., Patient Portal Info Letter PA/NATANAEL Supervising Physician PA/NATANAEL Supervising Physician: Dr Lagunas
[2024-07-24] MEDS: ALBUTEROL/IPRATROPIUM (Duoneb) RT SOL 3 ML NEBU INH (21:44)
[2024-07-24] MEDS: DEXAMETHASONE SOD PHOS INJ 10 MG/ML VIAL PO (21:45)
[2024-07-24 21:46] VITALS: PULSE 79; RESP 20; O2SAT 99
[2024-07-24 22:15] LABS: Strep A Rapid Negative (Negative)
== END 2024-07-24 22:58 | disposition home or self-care (01) ==
PROVIDERS: Physician Assistant; Emergency Provider Emergency Medicine; PCP Family Medicine
DX: J32.9 Chronic sinusitis, unspecified (principal); J40 Bronchitis, not specified as acute or chronic
CPT/HCPCS: 71046; 87400; 87651; 87811; 94640; 99283; A9270; J1100

== ENCOUNTER 2024-11-23 03:57 | Emergency (ER) | payer MEDICAID, SELFPAY ==
[2024-11-23 03:58] VITALS: BMI 36.0
[2024-11-23 04:03] VITALS: BP 111/77; PULSE 65; RESP 18; TEMP 36.6; O2SAT 99
--- NOTE | 2024-11-23 04:10 | EDRME_ITS ---
Rapid Medical Screening Exam [facility] Arrival date/time: 11/23/24 03:57 34F with no significant PMH presents to ED with several days of worsening flank pain that radiates to pelvis. Patient is not on cycle and denies dysuria. Patient states pain is not worse with movement. Chief Complaint: Abdominal Pain Vital signs: Vital Signs Temperature 97.9 F 11/23/24 04:03 Pulse Rate 65 11/23/24 04:03 Respiratory Rate 18 11/23/24 04:03 Blood Pressure 111/77 11/23/24 04:03 Pulse Oximetry (%) 99 11/23/24 04:03 Oxygen Delivery Method Room Air 11/23/24 04:03
[2024-11-23 04:43] LABS: Basophils # (Auto) 0.0 Thou/mm3 (0.0-0.2); Basophils % (Auto) 1 % (0-2.5); Eosinophils # (Auto) 0.4 Thou/mm3 (0.0-0.5); Eosinophils % (Auto) 6 % (0-10); Hematocrit 35.5 % (36.0-46.0); Hemoglobin 11.6 g/dL (12.0-16.0); Immature Granulocytes Auto 0.01 Thou/mm3 (0.00-0.00); Lymphocytes # (Auto) 2.9 Thou/mm3 (1.0-4.8); Lymphocytes % (Auto) 42 % (10-50); Mean Corpuscular HGB Conc 32.7 g/dl (31.0-37.0); Mean Corpuscular Hemoglobin 29.4 pg (25.0-35.0); Mean Corpuscular Volume 90 fL (80-100); Monocytes # (Auto) 0.3 Thou/mm3 (0.0-0.8); Monocytes % (Auto) 5 % (0-12); Neutrophils # (Auto) 3.2 Thou/mm3 (1.8-7.7); Neutrophils % (Auto) 47 % (37-80); Nucleated Red Blood Cell # 0.00 Thou/mm3 (0.00-0.00); Nucleated Red Blood Cell % 0 /100 WBC (0); Platelet Count 282 Thou/mm3 (140-440); RDW Standard Deviation 43.6 fL (36.4-46.3); Red Blood Count 3.95 Miln/mm3 (4.00-5.20); White Blood Count 6.8 Thou/mm3 (3.6-11.0)
[2024-11-23 05:07] LABS: Alanine Aminotransferase 17 U/L (10-49); Albumin, Serum 3.9 gm/dL (3.5-5.0); Albumin/Globulin Ratio 1.6 (1.2-2.2); Alkaline Phosphatase 47 U/L (46-116); Anion Gap 8 (7-16); Aspartate Amino Transferase 15 U/L (0-34); BUN/Creatinine Ratio 12 Ratio (12-20); Bilirubin,Total 0.3 mg/dL (0.3-1.2); Blood Urea Nitrogen 7 mg/dL (9-23); Calcium 8.8 mg/dL (8.3-10.6); Calcium (Corrected) 8.9 mg/dL (8.5-10.1); Carbon Dioxide 27.3 mMol/L (20.0-31.0); Chloride 109 mMol/L (98-107); Creatinine (Component) 0.6 mg/dL (0.6-1.3); Estimated Creatinine Clearance 145.1 mL/min (>60); Globulin 2.5 gm/dL (2.3-3.5); Glucose 96 mg/dL (74-106); Osmolality,Calculated 284 (275-295); Potassium 3.8 mMol/L (3.4-5.1); Sodium 144 mMol/L (136-145); Total Protein 6.4 gm/dL (5.7-8.2); eGFR > 60 See Note
--- NOTE | 2024-11-23 05:17 | XR_ITS ---
Examination: Transvaginal ultrasound of the pelvis, complete Technique: Transvaginal sonographic images pelvis performed using gloria scale imaging Exam date and time: November 23, 2024, 0522 hrs. Indications: Pelvic pain beginning 3 days ago Findings: Uterus 8.2 cm endometrial stripe 0.60 cm No uterine mass or intrauterine gestation Right ovary 2.4 cm arterial flow. Left ovary obscured by bowel gas Impression: No uterine mass or intrauterine gestation.
[2024-11-23 05:20] LABS: Collection Type, Urine Clean Catch
[2024-11-23 05:23] LABS: Bilirubin,Urine Negative (Negative); Blood,Urine Negative (Negative); Clarity,Urine Clear (Clear/Hazy); Color,Urine Colorless (Lt Yel-Yel); Culture Indicated,Urine Not Indicated; Glucose, Urine Negative (Negative); Ketones,Urine Negative (Negative); Leukocyte Esterase,Urine Negative (Negative); Nitrite,Urine Negative (Negative); PH,Urine 6.5 (5.0-7.0); Protein,Urine Negative (Neg - Trace); RBC,Urine < 1 /hpf (0-3); Specific Gravity,Urine 1.008 (1.001-1.035); Squamous Epithelial Cell,Urine 3 /hpf (0-5); Urobilinogen,Urine Negative mg/dL (0.0-1.0); WBC,Urine < 1 /hpf (0-5)
[2024-11-23 05:40] LABS: HCG Qualitative,Urine Negative
[2024-11-23 06:47] VITALS: BP 114/87; PULSE 62; RESP 20; TEMP 36.8; O2SAT 100
[2024-11-23 07:55] VITALS: BP 117/86; PULSE 68; RESP 17; TEMP 36.8; O2SAT 99
[2024-11-23 10:38] VITALS: BP 122/87; PULSE 61; RESP 18; O2SAT 100
--- NOTE | 2024-11-23 12:12 | XR_ITS ---
Examination: CT abdomen with intravenous contrast CT pelvis with intravenous contrast 2-D coronal reconstructions 2-D sagittal reconstructions Date and time of exam:November 23, 2024, 1229 hours, comparison September 11, 2023 INDICATIONS: Bilateral flank pain today, history kidney stones. CTDI: vol (mGy) 12.1 DLP: (mGycm) 728 Technique: Multiple axial sections of the abdomen and pelvis have been obtained. 64 slice high-resolution scanner used. 3 mm axial sections have been obtained, post intravenous injection 60 cc [id number] 2-D sagittal, coronal reconstructions obtained. Low dose protocols were performed. One or more of the following dose reduction techniques were used; automated exposure control, adjustment of the mA and/or KV according to patient size, use of iterative reconstruction technique. Findings: No focal liver or splenic lesions Absent gallbladder No pancreatic or adrenal mass No renal or ureteral calculi, no hydronephrosis Normal appendix No bowel obstruction No diverticulitis Anteverted uterus, no adnexal mass No urinary bladder wall thickening Intact osseous structures IMPRESSION: No renal or ureteral calculi, no hydronephrosis Normal appendix Normal urinary bladder
--- NOTE | 2024-11-23 12:12 | EDNOTE_ITS ---
ED Abdominal Pain RME/HPI General Chief Complaint: Abdominal Pain Stated complaint: BILATERAL FLANK PAIN Time seen by provider: 11/23/24 13:32 Arrival date/time: 11/23/24 03:57 Limitations: no limitations RME / HPI RME / HPI narrative: 11/23/24 03:57 34F with no significant PMH presents to ED with several days of worsening flank pain that radiates to pelvis. Patient is not on cycle and denies dysuria. Patient states pain is not worse with movement. DR. LORELEI JARAMILLO ED EVALUATION 34 year old female with history of gastric bypass and fibromyalgia presents to the ED for evaluation of flank and pelvic pain beginning intermittently 2 weeks ago. States pain became severe this morning, worse on the left side, prompting ED visit. Described as colicky sharp in sensation, rating as severe. Accompanied by feeling she is not emptying completely while urinating and constipation. Though reports the constipation is unchanged from baseline. Denies dysuria, urinary frequency or urgency. Denies fevers, chills, chest pain, cough, shortness of breath. Denies any recent travel. Related Data Previous Rx's ?Medication ?Instructions ?Recorded ibuprofen 600 mg tablet 600 mg PO Q6H PRN pain #20 t abs 01/28/21 acetaminophen 500 mg capsule 1,000 mg (2 x 500 mg) PO Q8HR PRN 06/08/24 pain #30 caps albuterol sulfate 90 mcg/actuation 2 inh inhalation Q4 H PRN shortness 07/24/24 aerosol inhaler of breath or wheezing #8.5 g jennifer amoxicillin 875 mg-potassium 1 tab PO BID Sinusitis #2 0 tabs 07/24/24 clavulanate 125 mg tablet cetirizine 10 mg tablet (Zyrtec) 10 mg PO QDAY #30 tab s 07/24/24 fluticasone propionate 50 2 spray intranasal QDAY #16 grams 07/24/24 mcg/actuation nasal spray,suspension (Flonase Allergy Relief) Allergies Allergy/AdvReac Type Severity Reaction Status Date / Time ceftriaxone Allergy Severe Hives Verified 11/23/24 03:57 Review of Systems Review of Systems Systems Reviewed: All systems reviewed, normal except as documented Past Medical History Past Medical History RESPIRATORY: Positive Asthma GASTROINTESTINAL: Positive Gastrointestinal Disorders and Gall Bladder Disease REPRODUCTIVE: Positive Previous Pregnancies OTHER HISTORY: Positive Hospitalization and Chicken Pox Family History FAMILY HISTORY: Positive Family Psychiatric Problems and Family Cardiac Disorders Surgical History SURGICAL: Positive Abdominal Surgery; Negative Section Social History SMOKING STATUS: Never smoker SECOND HAND EXPOSURE: No ED Exam General Limitations: Present no limitations General appearance: Present alert and in no apparent distress Head Head exam: Present atraumatic, normocephalic and normal inspection Eye Eye exam: Present normal appearance, PERRL and EOMI ENT ENT exam: Present normal exam, normal oropharynx and mucous membranes moist Neck Neck exam: Present normal inspection, full ROM and trachea midline Chest Chest inspection: Present normal inspection and symmetric chest wall rise Respiratory Respiratory exam: Present normal lung sounds bilaterally Cardiovascular Cardiovascular exam: Present regular rate, normal rhythm and normal heart sounds Abdominal Exam Abdominal exam: Present soft, tenderness (bilateral flank tenderness otherwise abdomen nontender) and normal bowel sounds; Absent distention, guarding or rebound Extremities Exam Extremities exam: Present normal inspection and full ROM Neurological Exam Neurological exam: Present alert and oriented X3 Psychiatric Psychiatric exam: Present normal affect and normal mood Skin Skin exam: Present warm, dry, intact and normal color Course Quality Measures none Orders Category Date Time Status CT Screening NOW Care 11/23/24 12:[address] abdomen pelvis w con Stat Exams 11/23/24 12:12 Completed US transvaginal Stat Exams 11/23/24 05:17 Completed CBC Stat Lab 11/23/24 04:30 Completed CMP [Comprehensive Metabolic Panel] Stat Lab 11/23/24 04:30 Completed HCG Qualitative,Urine Stat Lab 11/23/24 05:13 Completed Urinalysis, C/S if Indicated Stat Lab 11/23/24 05:13 Completed Morphine* Inj Med 11/23/24 12:11 Discontinued 2 mg IVP STAT STA Vital Signs Vital signs: Vital Signs Temperature 97.9 F 11/23/24 04:03 Pulse Rate 65 11/23/24 04:03 Respiratory Rate 18 11/23/24 04:03 Blood Pressure 111/77 11/23/24 04:03 Pulse Oximetry (%) 99 11/23/24 04:03 Oxygen Delivery Method Room Air 11/23/24 04:03 Pulse ox is 99% on room air which is adequate. Abdominal Pain MDM MDM Narrative MDM Narrative:: Patient is a 34-year-old female with medical history notable for gastric bypass that is in the emergency for concerns for bilateral flank pain as well as pelvic pain. Vital signs and exam as listed. Prior provider evaluated patient. Ordered labs as well as pelvic ultrasound. Labs with evidence of hemoglobin 11.6 which is near patient's baseline. No significant electrolyte abnormality, no evidence of renal dysfunction. No evidence of liver dysfunction. Urinalysis without evidence of infection. Patient is not . Pelvic ultrasound without any abnormalities that were identified. Patient had good flow to the right ovary, left ovary was obscured by bowel gas. Given patient with flank pain, persistent ordered CT abdomen and pelvis with contrast. Patient agreem ent. CT w/o any acute abnl. On re-evaluation patient HD stable, NAD, tolerating oral intake. Advised to follow up with pcp and ceramic tile setter for w/u of possible endometriosis or other causes of abd pain. Patient data External records reviewed:: [facility] previous records Clinical information provided by:: patient Social determinants that could affect healthcare access:: none Patient has the following chronic illnesses:: See MDM How is presenting disease/condition affected by chronic disease/condition?: exacerbated by Evaluation data The following diagnostics were reviewed and interpreted by me:: lab results and radiology exam(s) Lab and/or radiology exams considered but not ordered:: None Interpretation Summary: See MDM Medications / Prescriptions Medications or Prescriptions considered but not ordered:: None Medication administrations:: Medication Administration History Discontinued Medications Morphine Sulfate (Morphine Sulf Inj 4 Mg/Ml Vial) 2 mg IVP STAT STA Stop: 11/23/24 12:12 Last Admin: 11/23/24 12:17 Dose: 2 mg Documented By: EF See Consultations Consultation(s) initiated? (list below): No Diagnosis Differential diagnosis abdominal pain: other (See MDM ) Most likely diagnosis given after review of the tests above:: Acute flank pain Pelvic pain Admission Indicated Admission indicated?: not indicated Admission Request Was there a request for admission?: No Disposition Plan Disposition Plan: Discharge Discharge Attestation Discharge Attestation: The patient and all family members were given an opportunity to ask questions and understood the discharge instructions. Discharge instructions specifically effects, indications for sooner follow up or return to the emergency department, and the expected course of current diagnosis. Patient condition: Stable Discharge Plan Plan Patient Disposition: HOME (Self Care) Prescriptions/Referrals Prescriptions/Med Rec: No Action ibuprofen 600 mg tablet 600 mg PO Q6H PRN (Reason: pain) Qty: 20 0RF acetaminophen 500 mg capsule 1,000 mg PO Q8HR PRN (Reason: pain) Qty: 30 0RF amoxicillin-pot clavulanate 875-125 mg tablet 1 tab PO BID Qty: 20 0RF fluticasone propionate [Flonase Allergy Relief] 50 mcg/actuation spray,suspension 2 spray intranasal QDAY Qty: 16 0RF Rx Instructions: administer into each nostril cetirizine [Zyrtec] 10 mg tablet 10 mg PO QDAY Qty: 30 0RF albuterol sulfate 90 mcg/actuation HFA aerosol inhaler 2 inh inhalation Q4H PRN (Reason: shortness of breath or wheezing) Qty: 8.5 0RF Referrals: Grant Garcia MD [Primary Care Provider, Family Practice] - In 1 week Problem List Clinical Impression: Acute flank pain, Pelvic pain Patient/Caregiver Discharge Instructions Education Materials: Abdominal Pain Additional Instructions: Please follow-up with your primary care doctor and discuss your abdominal pain and your flank pain. Today your labs CT scan and ultrasound did not identify any acute abnormalities. Your left ovary was not visualized as it was obscured by bowel gas. If you have recurrence of pain or any other symptoms of concern return to the emergency room immediately. Also recommend that you seek care with a ceramic tile setter to discuss your chronic pelvic pain. Print Language: Korean Stand Alone Forms: Mara Award Info., Work/School Release, Patient Portal Info Letter
[2024-11-23] MEDS: MORPHINE SULF INJ 4 MG/ML VIAL 2 MG IVP (12:17)
[2024-11-23 15:27] VITALS: BP 116/77; PULSE 59; RESP 18; TEMP 36.6; O2SAT 99
== END 2024-11-23 15:30 | disposition home or self-care (01) ==
PROVIDERS: Physician Assistant; Emergency Provider Emergency Medicine; PCP Family Medicine
DX: R10.2 Pelvic and perineal pain (principal); K59.00 Constipation, unspecified
CPT/HCPCS: 36415; 74177; 76830; 80053; 81001; 81025; 85025; 96374; 99284; A4649; J2270; Q9967